=== PATIENT | female | born 1980 | race Caucasian/White ===

== ENCOUNTER → 2018-08-25 | Outpatient (CLI) | payer BC ==
[~2018-08-25] MED LIST: ADIPEX-P37.5 MG PO; CELEXA40 MG PO; EXCEDRIN1 TAB PO; IBIFON 600600 MG PO; LUVOX 50MG50 MG/TAB PO; MIDRIN 325 MG-11 CAP PO; PHENDIMETRAZIN105 MG PO; PHENDIMETRAZINE PO; TOPAMAX 25MG25 M1 PO; VIIBRYD40 MG PO; XANAX 0.5MG0.5 MG PO
== END ==
LOC: BHSO 14:58
DX: F33.0 Major depressive disorder, recurrent, mild (principal)